=== PATIENT | female | born 2000 | race Caucasian/White ===

== ENCOUNTER 2019-07-11 12:24 | Inpatient (IN) | payer OTHER, MEDICAID, SELFPAY ==
[2019-07-11] VITALS (83 sets, daily range): BP systolic 88–162; BP diastolic 45–99; PULSE 83–144; TEMP 36.8–37.5; O2SAT 98–100
--- NOTE | 2019-07-11 13:00 | LDADM ---
This patient, Digna Nathan, was admitted to Labor/Delivery/Recovery 103 on 07/11/19 at 12:24. Plans for labor, pain management and were discussed with patient. Patient/family oriented to hospital policies and general routines including ID bracelet, bed and alarms, visiting hours, pain management, procedures, bathroom and other care routines, personal items, smoking policy, room service/diet and guest tray routines, security routines, call light, and visiting hours. Patient/Family are encouraged to report perceived risks to care and to ask questions if they do not understand what they are told or what they should do. See OBIX for further documentation.
[2019-07-11 13:32] LABS: Basophils Percent Auto 0.2 % (0.2-1.2); Eosinophils Absolute Auto 0.1 K/mm3 (0-0.3); Eosinophils Percent Auto 0.4 % (0-4.4); Hemoglobin 11.4 g/dL (12.0-15.0); Immature Granulocyte Absolute 0.06 K/mm3 (0.00-0.031); Immature Granulocyte Percent A 0.5 % (0-0.5); Lymphocytes Absolute Auto 1.83 K/mm3 (0.9-3.2); Lymphocytes Percent Auto 15.9 % (18.3-44.2); Mean Corpuscular HGB Conc 33.5 g/dl (32-36); Mean Corpuscular Hemoglobin 29.2 pg (26-34); Mean Corpuscular Volume 87.2 fl (80-100); Mean Platelet Volume 9.8 fl (7.4-10.4); Monocytes Absolute Auto 0.7 K/mm3 (0.1-0.6); Monocytes Percent Auto 6.4 % (2.6-8.5); Neutrophils Absolute Auto 8.8 K/mm3 (1.3-6.7); Neutrophils Percent Auto 76.6 % (45.5-73.1); Platelet Count Result 250 k/mm3 (150-375); Red Cell Distribution Width 13.8 % (11.5-14.5); White Blood Count 11.5 K/mm3 (4.5-10.0)
--- NOTE | 2019-07-11 13:46 | LDADM ---
This patient, Digna Nathan, was admitted to Labor/Delivery/Recovery 103 on 07/11/19 at 12:24. Plans for labor, pain management and were discussed with patient. Patient/S.O. oriented to hospital policies and general routines including ID bracelet, bed and alarms, visiting hours, pain management, procedures, bathroom and other care routines, personal items, smoking policy, room service/diet and guest tray routines, security routines, call light, and visiting hours. Patient/S. O. are encouraged to report perceived risks to care and to ask questions if they do not understand what they are told or what they should do. See OBIX for further documentation.
[2019-07-11] MEDS: OXYTOCIN 30 UNITS/NS 500 ML 30 UNITS/500 ML BAG IV CONT (14:51)
[2019-07-11] MEDS: LACTATED RINGERS 1,000 ML 125 ML IV CONT ×2 (14:51→22:05)
[2019-07-11 15:19] LABS: Alanine Aminotransferase 18 U/L (4-35); Albumin Level 3.2 g/dL (3.5-5.1); Alkaline Phosphatase 173 U/L (38-126); Aspartate Amino Transferase 28 U/L (14-36); Bilirubin,Total < 0.1 mg/dL (0.2-1.3); Blood Urea Nitrogen 10 mg/dL (7-17); Calcium 8.4 mg/dL (8.4-10.2); Carbon Dioxide 20 mmol/L (22-30); Chloride 107 mmol/L (98-107); Estimated Glomerular Filt Rate > 60; Glucose 108 mg/dL (65-105); Potassium 3.7 mmol/L (3.4-5.0); Sodium 131 mmol/L (137-145); Uric Acid 4.9 mg/dL (2.5-7.5)
--- NOTE | 2019-07-11 19:19 | WPDANESEPP ---
Anes - Eval Pre Procedure Procedure: labor epidural Date/Time: 07/11/19 19:19 Surgeon: David Preop Diagnosis: Pain during labor Pre Op Diagnosis: SROM Patient Data Age: 18 Gender: F Height: Weight: Last Vital Signs Temp 37.1 C 07/11/19 15:00 Pulse 92 07/11/19 19:18 BP 125/73 07/11/19 19:18 Pulse Ox 100 07/11/19 19:14 Allergies Allergy/AdvReac Type Severity Reaction Status Date / Time No Known Allergies Allergy Verified 07/03/19 14:31 Home Medications Medication Instructions Recorded Confirmed Type PNV no.[id number] 1 tablet PO BID 07/03/19 07/03/19 History [ Gummies] famotidine [Pepcid] 20 mg PO BID 07/03/19 07/03/19 History Laboratory Tests 07/11/19 07/11/19 07/11/19 13:24 13:24 13:24 WBC 11.5 K/mm3 H K/mm3 (4.5-10.0) RBC 3.90 M/mm3 L M/mm3 (4.2-5.4) Hgb 11.4 g/dL L g/dL (12.0-15.0) Hct 34.0 % L % (37.0-47.0) MCV 87.2 fl fl (80-100) MCH 29.2 pg pg (26-34) MCHC 33.5 g/dl g/dl (32-36) RDW 13.8 % % (11.5-14.5) Plt Count 250 k/mm3 k/mm3 (150-375) MPV 9.8 fl fl (7.4-10.4) Immature Gran % (Auto) 0.5 % % (0-0.5) Neut % (Auto) 76.6 % H % (45.5-73.1) Lymph % (Auto) 15.9 % L % (18.3-44.2) [place] % (Auto) 6.4 % % (2.6-8.5) Eos % (Auto) 0.4 % % (0-4.4) Baso % (Auto) 0.2 % % (0.2-1.2) Lymph # (Auto) 1.83 K/mm3 K/mm3 (0.9-3.2) [place] # (Auto) 0.7 K/mm3 H K/mm3 (0.1-0.6) Eos # (Auto) 0.1 K/mm3 K/mm3 (0-0.3) Baso # (Auto) 0.0 K/mm3 K/mm3 (0.0-0.1) Abs Immat Gran (auto) 0.06 K/mm3 H K/mm3 (0.00-0.031) Absolute Neuts (auto) 8.8 K/mm3 H K/mm3 (1.3-6.7) Absolute Nucleated RBC 0.0 K/mm3 K/mm3 (0.0-0.012) Nucleated RBC % 0.0 % % (0.0-0.2) Sodium Potassium Chloride Carbon Dioxide BUN Creatinine Estim Creat Clear Calc Estimated GFR Glucose Uric Acid Calcium Total Bilirubin AST ALT Alkaline Phosphatase Total Protein Albumin RPR Pending Blood Type B Positive Antibody Screen Negative 07/11/19 14:53 WBC RBC Hgb Hct MCV MCH MCHC RDW Plt Count MPV Immature Gran % (Auto) Neut % (Auto) Lymph % (Auto) [place] % (Auto) Eos % (Auto) Baso % (Auto) Lymph # (Auto) [place] # (Auto) Eos # (Auto) Baso # (Auto) Abs Immat Gran (auto) Absolute Neuts (auto) Absolute Nucleated RBC Nucleated RBC % Sodium 131 mmol/L L mmol/L (137-145) Potassium 3.7 mmol/L mmol/L (3.4-5.0) Chloride 107 mmol/L mmol/L (98-107) Carbon Dioxide 20 mmol/L L mmol/L (22-30) BUN 10 mg/dL mg/dL (7-17) Creatinine 0.50 mg/dL L mg/dL (0.7-1.0) Estim Creat Clear Calc Not Reportable Estimated GFR > 60 (59 - ) Glucose 108 mg/dL H mg/dL (65-105) Uric Acid 4.9 mg/dL mg/dL (2.5-7.5) Calcium 8.4 mg/dL mg/dL (8.4-10.2) Total Bilirubin < 0.1 mg/dL L mg/dL (0.2-1.3) AST 28 U/L U/L (14-36) ALT 18 U/L U/L (4-35) Alkaline Phosphatase 173 U/L H U/L (38-126) Total Protein 6.0 g/dL L g/dL (6.3-8.2) Albumin 3.2 g/dL L g/dL (3.5-5.1) RPR Blood Type Antibody Screen Patient hx anesthesia problems: none Family hx anesthesia problems: [facility] Family History Family History (Updated 07/03/19 @ 14:34 by Hawk Herbert RN) Other Unknown family medical history Social History Social History Smoking status: Never smoker Substance use: never
[2019-07-12] VITALS (11 sets, daily range): BP systolic 106–141; BP diastolic 68–87; PULSE 93–127; RESP 16–18; TEMP 36.8–37.4; O2SAT 92–100
--- NOTE | 2019-07-12 00:13 | WPDOBADMIT ---
Obstetrics - Admit Note Admission Note: 18 y/o G1 @ 38w4d who came in with leaking fluid and rom was confirmed. Initially pt thought she might have started leaking last night but on arrival to hospital she was confident she had only been leaking fluid since 0900 and thinks she lost her mucous plug last night. record reviewed. No pertinent additions to the history and/or any subsequent changes in the physical findings that are not consistent with the expected course of the were found. Additions to the history and/or subsequent changes in the physical findings follow. None.
--- NOTE | 2019-07-12 00:16 | P.PCNOB_ITS ---
OB - Delivery Note Procedure Delivery date: 07/12/19 Procedure: Forebag ruptured spontaneously at 1841 events: Labor Augmentation Intrapartal events: None Delivery monitor: external FHT and external uterine Route of delivery: Laceration description: Perineal - 2nd Degree Delivery repair: vicryl Estimated blood loss (mL): 142 Anesthesia type: Epidural [place] Baby Date of : 07/12/19 Time of : 23:03 Weeks of gestation at delivery: 38 gender: Female presentation: vertex position: Left Occiput Anterior Placenta delivery description: Spontaneous cord vessel description: 3 Vessels, Nuchal Cord, Around Body x1 and Around Body x2 score one minute: 8 score five minutes: 8 Narrative: Nuchal cord x 1 reduced and at delivery noted to be wrapped around the body and left arm. At delivery had very poor tone and resp effort. Cord clamped and handed off to nursery staff.
[2019-07-12] MEDS: IBUPROFEN 600 MG TABLET PO ×3 (00:47→20:02)
[2019-07-12] MEDS: WITCH HAZEL 40 PADS 1 PAD TOPICAL (01:42)
[2019-07-12] MEDS: BENZOCAINE 20% AER SPR (*SP) 56 GM CAN 1 SPRAY TOPICAL (01:42)
--- NOTE | 2019-07-12 05:16 | PC.NURSE ---
This patient, Digna Nathan, was received from Labor and delivery on 07/12/19 at 0200. Personal belongings list checked and signed. Patient/family oriented to unit policies and routines
--- NOTE | 2019-07-12 07:48 | P.PNOB_ITS ---
OB - PN: Subj Subjective Date/time seen: 07/12/19 07:48 Patient comments: no complaints baby status: doing well OB - PN: Obj Data Labs CBC & Chem 7: 07/11/19 13:24 07/11/19 14:53 Labs: Laboratory Results - last 24 hr 07/11/19 07/11/19 07/11/19 13:24 13:24 14:53 WBC 11.5 H RBC 3.90 L Hgb 11.4 L Hct 34.0 L MCV 87.2 MCH 29.2 MCHC 33.5 RDW 13.8 Plt Count 250 MPV 9.8 Immature Gran % (Auto) 0.5 Neut % (Auto) 76.6 H Lymph % (Auto) 15.9 L [place] % (Auto) 6.4 Eos % (Auto) 0.4 Baso % (Auto) 0.2 Lymph # (Auto) 1.83 [place] # (Auto) 0.7 H Eos # (Auto) 0.1 Baso # (Auto) 0.0 Abs Immat Gran (auto) 0.06 H Absolute Neuts (auto) 8.8 H Absolute Nucleated RBC 0.0 Nucleated RBC % 0.0 Sodium 131 L Potassium 3.7 Chloride 107 Carbon Dioxide 20 L BUN 10 Creatinine 0.50 L Estim Creat Clear Calc Not Reportable Estimated GFR > 60 Glucose 108 H Uric Acid 4.9 Calcium 8.4 Total Bilirubin < 0.1 L AST 28 ALT 18 Alkaline Phosphatase 173 H Total Protein 6.0 L Albumin 3.2 L Blood Type B Positive Antibody Screen Negative OB - PN A/P Plan day: 1 Plan: routine care Time Spent With Patient Time: Total time spent is greater than 50% in coordination of care (as radha price) at patient's floor/unit and/or counseling patient: Review of Systems Review of Systems: All systems reviewed & are unremarkable except as noted in HPI and below Constitutional: Constitutional: Reports as per HPI Cardiovascular: Cardiovascular: Reports as per HPI Exam Const: General: comfortable Cardio: Rate: regular rate Psych: Appearance: grossly normal Affect: normal affect Attitude: cooperative Judgement: Good judgement present (Psych)
[2019-07-12 08:42] LABS: Rapid Plasma Reagin Non-Reactive (NonReactive)
--- NOTE | 2019-07-12 09:30 | PC.NURSE ---
Mother called out for assist with feeding. Mother reports infant has been in level II, she began pumping. This is 's first time to breast. l Reviewed infant feeding cues, frequencies, duration of feedings, feeding elimination flow sheet, and signs of adequate intake. Demonstrated stimulation techniques to wake infant for feeding. easily awoken with feeding cues noted. Assisted with infant to breast. Reviewed positioning/alignment in cross cradle, holding breast in U hold and guided asymmetrical latch on. Discussed rational for each. Infant was able to latch correctly. Infant made minimal effort to suckle, keeping nipple in her mouth. Occasional short flutter suckling noted. Advised to keep breast for 10-15 minutes then supplement and pump. Nipple care reviewed. Instructed mother to call out for RN assistance if she is unable to latch for feeding or she has discomfort with nursing. Instructed feeding should be initiated three hours from start of last feeding or if feeding cues are noted before. Mother voiced understanding of information shared.
[2019-07-12] MEDS: MULTIVIT/MIN/PREN/FOL AC/IRON TABLET 1 TAB PO (09:57)
[2019-07-12] MEDS: DOCUSATE SODIUM 100 MG CAPSULE PO (09:57)
--- NOTE | 2019-07-12 12:45 | PC.NURSE ---
Mother called out for assist with feeding. Demonstrated stimulation techniques to wake for feeding. easily awoken with feeding cues noted. Infant more awake with some feeding cues noted. Assisted with to breast. Reviewed positioning/alignment in cross cradle, holding breast in U hold and guided asymmetrical latch on. Discussed rational for each. Infant was able to latch correctly. Infant nursed eagerly with steady draws and occasional swallowing noted for 2-3 minutes. then stopped and fell asleep, infant made no continued effort to suckle. Reviewed signs of a correct latch, effective nursing and suck swallow ratio. was able to maintain latch without discomfort to mother. Nipple care reviewed. FOB will supplement and mother will pump. Instructions given on breast pump care and usage, pumping schedule, nipple care, and collection and storage of breast milk. Encouraged [id number], breast massage and manual expression to stimulate supply. Assessed patient for correct flange size, placement and draw. Patient verbalizes and demonstrates understanding of instructions. Instructed mother to call out for RN assistance if she is unable to latch for feeding or she has discomfort with nursing. Instructed feeding should be initiated three hours from start of last feeding or if feeding cues are noted before. Mother voiced understanding of information shared.
[2019-07-12] MEDS: ACETAMINOPHEN 325 MG TABLET 650 MG PO (20:03)
[2019-07-13 04:39] LABS: Hematocrit 28.8 % (37.0-47.0); Hemoglobin 9.5 g/dL (12.0-15.0)
[2019-07-13] MEDS: IBUPROFEN 600 MG TABLET PO (07:55)
[2019-07-13] MEDS: DOCUSATE SODIUM 100 MG CAPSULE PO ×2 (07:55→15:31)
[2019-07-13] MEDS: MULTIVIT/MIN/PREN/FOL AC/IRON TABLET 1 TAB PO (07:55)
[2019-07-13] MEDS: POLYSACCHARIDE IRON COMPLEX 150 MG CAPSULE PO ×2 (07:55→15:31)
[2019-07-13] MEDS: ACETAMINOPHEN 325 MG TABLET 650 MG PO (07:56)
[2019-07-13 08:43] VITALS: BP 135/93; PULSE 85; RESP 16; TEMP 36.7; O2SAT 98
[2019-07-13] MEDS: TETANUS,DIPHTHERIA,AC PERTUSSIS ADULT (0.5 ML) BOOSTRIX IM (09:18)
--- NOTE | 2019-07-13 11:30 | PC.NURSE ---
Patient viewed the discharge video Mother & Baby Care, The First Two Weeks . Patient was given the opportunity and encouraged to ask questions. Patient verbalized understanding of information shared and has been given the mother/baby guide for home reference.
--- NOTE | 2019-07-13 12:00 | PM.OBPNVD ---
OB - PN: Subj Subjective Date/time seen: 07/13/19 12:00 Patient comments: no complaints, pain well controlled and tolerating diet OB - PN: Obj Data Labs CBC & Chem 7: 07/13/19 04:15 07/11/19 14:53 Labs: Laboratory Results - last 24 hr 07/13/19 04:15 Hgb 9.5 L Hct 28.8 L OB - PN A/P Plan day: 2 Plan: routine care and discharge home Time Spent With Patient Time: Total time spent is greater than 50% in coordination of care (as documented) at patient's floor/unit and/or counseling patient: Exam Const: General: comfortable and no acute distress Resp: Effort & Inspection: normal respiratory effort Auscultation: no rales, no rhonchi and no wheezes Cardio: Rate: regular rate Heart sounds: no click, no murmurs and no rubs GI: GI Palp: Yes Soft to palpation and No Tenderness to palpation present (GI) Auscultation: normal bowel sounds Extrem: General: normal to inspection, no pedal edema and no calf tenderness
--- NOTE | 2019-07-13 12:01 | PM.OBDSVD ---
DS: Discharge Diagnosis Discharge Diagnosis (1) Term delivered: Code(s): O80 - Encounter for full-term uncomplicated delivery Status: Acute OB - DS: Summary OB Procedures : None OB Procedures Intrapartum: Spontaneous Vag Delivery OB Procedures: : None Peripartum Data Delivery Method: Natural Vaginal Status at Discharge Functional status at discharge: independent ambulation Time Spent with Patient Time attestation: Total time spent providing and/or coordinating discharge services: Time spent: Less than 30 minutes DS: Data Data Completed and Pending Labs on day of discharge: Labs from last 24 hours 07/13/19 04:15 Hgb 9.5 L Hct 28.8 L Discharge Plan Discharge Discharging Clinician: Marquez Hernandez Patient Disposition: Home Health Service Activity: pelvic rest Diet: regular Patient Instructions: Antibiotic Form Stand Alone Forms: General Discharge Information Follow-up/Referrals: Marquez Hernandez MD [Physician] - Discharge Medications: Continued famotidine [Pepcid] 20 mg Tablet 20 mg PO BID RF: 0 Gummies 400 mcg-35 mg- 25 mg-5 mg Tablet,Chewable 1 tablet PO BID RF: 0 Date of admission: 07/11/19 12:24 Primary Care Provider: PHYSICIAN,INTERNAL CONTROLS MANAGER Admitting Provider: Marquez Hernandez Attending physician on admission: Marquez Hernandez
[2019-07-15 09:48] VITALS: BP 126/85; PULSE 88; RESP 20; TEMP 36.8; O2SAT 100
== END 2019-07-13 18:30 | disposition home or self-care (01) | DRG 807 ==
LOC: ANHLDR 15:01 → ANHOB2 07-12 02:10
PROVIDERS: Advanced Practice Midwife; Admitting Provider Obstetrics & Gynecology; Visit Provider Obstetrics & Gynecology
DX: O69.82X0 Labor and delivery complicated by other cord entanglement, without compression, not applicable or unspecified (principal); Z37.0 Single live birth; Z3A.38 38 weeks gestation of pregnancy; O70.1 Second degree perineal laceration during delivery
CPT/HCPCS: 36415; 80053; 84112; 84550; 85014; 85018; 85025; 86592; 86850; 86900; 86901; 90715; A9270; J2590; J2795; J3010; J7120

== ENCOUNTER → 2020-10-09 07:44 | Outpatient (CLI) | payer OTHER, SELFPAY ==
--- NOTE | ~2020-10-09 | US_ITS ---
US breast LT complete INDICATION: Left breast lump. TECHNIQUE: Dedicated left breast ultrasound COMPARISON: No prior studies for comparison. FINDINGS: The left breast is composed of normal heterogeneous echotexture without focal solid or cyst ic mass. IMPRESSION: 1: Normal left breast ultrasound. BI-RADS CATEGORY 1 - NEGATIVE Reviewed, dictated and finalized at location A.
== END ==
PROVIDERS: Visit Provider Advanced Practice Midwife
DX: N63.20 Unspecified lump in the left breast, unspecified quadrant (principal)
CPT/HCPCS: 76641

== ENCOUNTER 2021-02-02 16:05 | Outpatient (CLI) | payer OTHER, SELFPAY ==
[2021-02-02] VITALS (21 sets, daily range): BP systolic 91–108; BP diastolic 51–70; PULSE 89–121; TEMP 37–37.4; O2SAT 97–100
--- NOTE | 2021-02-02 17:24 | ECG_ITS ---
Measurements Intervals [place] Rate: 91 P: 24 [place]: 108 QRS: 20 QRSD: 90 T: 18 QT: 347 QTc: 427 Interpretive Statements SINUS RHYTHM WITH SHORT [place] INTERVAL INCOMPLETE RIGHT BUNDLE BRANCH BLOCK DELAYED PRECORDIAL R/S TRANSITION BORDERLINE ECG Electronically Signed On 02-02-2021 21:53:43 RAISIN WASHER by Arie Moon D.O.
--- NOTE | 2021-02-02 18:09 | PC.NURSE ---
Dr. Ng informed of EKG printout reading. OK to discharge to home. Pt to be seen in office within the week. Pt will call office and reschedule appointment.
== END 2021-02-02 18:15 | disposition home or self-care (01) ==
LOC: ANHOBOP 16:15 → ANHOBPP 16:16
PROVIDERS: Visit Provider Advanced Practice Midwife
DX: O42.90 Premature rupture of membranes, unspecified as to length of time between rupture and onset of labor, unspecified weeks of gestation (principal); Z3A.00 Weeks of gestation of pregnancy not specified
CPT/HCPCS: 59025; 84112; 93005; 99199

== ENCOUNTER 2021-04-01 12:01 | Observation (INO) | payer OTHER, SELFPAY ==
[2021-04-01 12:46] VITALS: BMI 34.3
--- NOTE | 2021-04-01 12:46 | OBADM ---
This patient, Digna Nathan, admitted to the OB room OB 112 for observation for back pain and leakage of fluid. Patient/family oriented to hospital policies and general routines including ID bracelet, bed and alarms, visiting hours, pain management, procedures, bathroom and other care routines, personal items, smoking policy, room service/diet, and visiting hours. Patient/Family are encouraged to report perceived risks to care and to ask questions if they do not understand what they are told or what they should do.
[2021-04-01 12:53] LABS: Add Urine Microscopic? YES; Appearance Urine Clear (Clear); Bacteria Urine Trace /hpf; Bilirubin Urine Negative (Negative); Blood Urine Negative (Negative); Color Urine Yellow (Yellow); Glucose Urine UA Negative (Negative); Ketones Urine 2+ mg/dL (Negative); Leukocyte Esterase Ur Negative LEU/UL (Negative); Mucus Urine Rare /lpf; Nitrate Urine Negative (Negative); Protein Urine 2+ mg/dL (Negative); RBC Urine 0-2 /hpf (0-2); Specific Grav Ur 1.019 (1.001-1.035); Squamous Epithelial Cell Urine Many /hpf (Few); Urobilinogen Urine Negative mg/dL (<2.0)
[2021-04-01 13:04] VITALS: BP 112/79; PULSE 110
[2021-04-01 13:05] VITALS: TEMP 37.4
[2021-04-01 14:11] VITALS: BP 119/80; PULSE 103
--- NOTE | 2021-04-25 21:09 | P.PNOB_ITS ---
OB - Triage/Final Diagnosis Visit Information Comments/Additional reasons for admission: I have assessed the risk for this patient, Digna Nathan, and determined that she would benefit from observation care. Evaluation Laboratory results: Laboratory Tests 04/01/21 12:32 Urine Color Yellow Urine Appearance Clear Urine pH 6.0 Ur Specific [place] 1.019 Urine Protein 2+ H Urine Glucose (UA) Negative Urine Ketones 2+ H Ur Blood (Man) Negative Urine Nitrate Negative Urine Bilirubin Negative Urine Urobilinogen Negative Leukocyte Esterase Rfl Negative Urine RBC 0-2 Urine WBC 4-6 H Ur Squamous Epith Cells Many H Urine Bacteria Trace Urine Mucus Rare Final Diagnosis (1) Back pain: Code(s): M54.9 - Dorsalgia, unspecified Status: Acute
== END 2021-04-01 14:18 | disposition home or self-care (01) ==
PROVIDERS: Admitting Provider Obstetrics & Gynecology; Visit Provider Obstetrics & Gynecology
DX: O99.891 Other specified diseases and conditions complicating pregnancy (principal); M54.9 Dorsalgia, unspecified; Z3A.36 36 weeks gestation of pregnancy
CPT/HCPCS: 81001; 84112; G0378; G0379

== ENCOUNTER 2021-04-19 06:51 | Inpatient (IN) | payer OTHER, SELFPAY ==
[2021-04-19] VITALS (159 sets, daily range): BP systolic 80–154; BP diastolic 40–88; PULSE 25–125; RESP 16; TEMP 36.5–37.3; O2SAT 91–100; BMI 34.3
--- OUTSIDE RECORDS SUMMARY | 2021-04-19 06:56 | XMS_ITS ---
:2000 Author Care Team Providers Name Role Phone Brionna Hernandez Primary Care Provider Unavailable Allergies Code Code System Name Reaction Severity Status Onset NKDA ? Medications Name Status Start Date Stop Date ? ? Aspir-81 mg tablet,delayed release Completed ? 09/07/2020 take 1 tablet by oral route every day Asprin Ec Low Dose 81 mg tablet,delayed release Completed ? 06/12/2019 Take 1 tablet every day by oral route. cephalexin 500 mg capsule Completed ? 2020 TAKE 1 CAPSULE EVERY 6 HOURS BY ORAL ROUTE FOR 7 DAYS. cyclobenzaprine 10 mg tablet Completed ? 03/2020 TAKE 1 TABLET BY MOUTH THREE TIMES A DAY NEEDED FOR MUSCLE S PASMS escitalopram 10 mg tablet Completed ? 2020 TAKE 1 TABLET BY MOUTH EVERY DAY escitalopram 20 mg tablet Completed ? 2020 TAKE 1 TABLET BY MOUTH EVERY DAY ibuprofen 600 mg tablet Completed ? 09/08/19 21 TAKE 1 TABLET BY MOUTH EVERY 6 HOURS NEEDED FOR PAIN Junel 02/25 (28) 1 mg-20 mcg (21)/75 mg (7) tablet Completed ? 12/27/2019 TAKE 1 TABLET BY MOUTH EVERY DAY metronidazole 500 mg tablet Completed ? 01/07 Take 1 tablet twice a day by oral route for 7 days. ondansetron HCl 4 mg tablet Active ? Not available pepsin (bulk) Completed ? 08/28/2019 + DHA Completed ? 08/28/2019 28 mg-800 mcg tablet Active ? No t available Samples given progesterone micronized Completed ? 06/10/19 proges
--- OUTSIDE RECORDS SUMMARY | 2021-04-19 06:56 | XMS_ITS | Encounter Summary ---
:2000 Author Reason for Visit OB visit OB [id number] EDC 04/24/2020 LMP 07/11/2020 Assessment and Plan Assessment Note Patient is _27__weeks . Dis cussed plan. 1. Routine care Discussion Note: None recorded.Patient educational handouts: No information available. Plan of Care Reminders Provider Appointments None ? ? recorded. Lab None ? ? recorded. Referral None ? ? recorded. Procedures None ? ? recorded. Surgeries None ? ? recorded. Imaging None ? ? recorded. Medications Name Start Date ? ? ondansetron HCl 4 mg tablet ? Take 1 tablet every 6 hours by oral route. 28 mg-800 mcg tablet ? Samples given Medications Administered None recorded. Vitals Height Weight BMI Blood Pressure 5 ft 3 in 185 lbs 32.8 kg/m2 124/78 mm[Hg] Results Lab Results None recorded. Allergies Code Code System Name Reaction Severity Onset NKDA ? ? ? Problems Name Status Onset Date Source ? Active 10/15/2020 ? Notes: 12/16 Level II & Dr visit if needed Proced
--- OUTSIDE RECORDS SUMMARY | 2021-04-19 06:56 | XMS_ITS | Encounter Summary ---
:2000 Author Reason for Visit OB visit OB [id number] EDC 04/24/2021 LMP 07/11/2020 Assessment and Plan Assessment Note Patient is _37__weeks . Dis cussed plan. 1. Routine care [...] BMI Blood Pressure 5 ft 3 in 194 lbs 34.4 kg/m2 124/86 mm[Hg] Results Lab Results None recorded. Allergies Code Code System Name Reaction Severity Onset NKDA ? ? ? Problems Name Status Onset Date Source ? Active 10/15/2020 ? Notes: 12/16 Level II & Dr visit if needed Procedur
--- OUTSIDE RECORDS SUMMARY | 2021-04-19 06:56 | XMS_ITS | Encounter Summary ---
:2000 Author Reason for Visit OB visit OB [id number] EDC 04/24/2021 LMP 07/11/2020 Assessment and Plan Assessment Note Patient is _38__weeks . Dis cussed plan. 1. Routine care [...] ft 3 in 194 lbs 34.4 kg/m2 119/81 mm[Hg] Results Lab Results None recorded. Allergies Code Code System Name Reaction Severity Onset NKDA ? ? ? Problems Name Status Onset Date Source ? Active 10/15/2020 ? Notes: 12/16 Level II & Dr visit if needed Procedu
--- OUTSIDE RECORDS SUMMARY | 2021-04-19 06:56 | XMS_ITS | Encounter Summary ---
:2000 Author Reason for Visit OB visit OB [id number] EDC 04/24/2021 LMP 07/11/2020 Assessment and Plan Assessment Note Patient is _29__weeks . Dis cussed plan. 1. Routine care [...] BMI Blood Pressure 5 ft 3 in 190 lbs 33.7 kg/m2 104/74 mm[Hg] Results Lab Results None recorded. Allergies Code Code System Name Reaction Severity Onset NKDA ? ? ? Problems Name Status Onset Date Source ? Active 10/15/2020 ? Notes: 12/16 Level II & Dr visit if needed Proced
--- OUTSIDE RECORDS SUMMARY | 2021-04-19 06:56 | XMS_ITS | Encounter Summary ---
:2000 Author Reason for Visit None recorded. Assessment and Plan 1. Large for gestation age fetus ? US, obstetric, follow-up Discussion Note: None recorded.Patient educational handouts: No information available. Plan of Care Reminders Provider Appointments None ? ? recorded. Lab None ? ? recorded. Referral None ? ? recorded. Procedures None ? ? recorded. Surgeries None ? ? recorded. Imaging US, 04/07/2021 [place] [facility], Follow-up Medications Name Start Date ? ? ondansetron HCl 4 mg tablet ? Take 1 tablet every 6 hours by oral route. 28 mg-800 mcg tablet ? Samples given Medications Administered None recorded. Vitals None recorded. Results Lab Results None recorded. Allergies Code Code System Name Reaction Severity Onset NKDA ? ? ? Problems Name Status Onset Date Source ? Active 10/15/2020 ? Notes: 12/16 Level II & Dr visit if needed Procedures Date Name Performed by ? 02/07/2008 Wrist Arthroscopy/surgery Information no t a
--- OUTSIDE RECORDS SUMMARY | 2021-04-19 06:56 | XMS_ITS | Encounter Summary ---
:2000 Author Reason for Visit OB visit Pt is here today for her 34/2 week routi ne ob visit. no complaints. Assessment and Plan Assessment Note Patient is ___weeks . Discu ssed plan. 1. Routine care Discussion Note: None [...] ft 3 in 194 lbs 34.4 kg/m2 122/79 mm[Hg] Results Lab Results None recorded. Allergies Code Code System Name Reaction Severity Onset NKDA ? ? ? Problems Name Status Onset Date Source ? Active 10/15/2020 ? Notes: 12/16 Level II & Dr visit
--- OUTSIDE RECORDS SUMMARY | 2021-04-19 06:56 | XMS_ITS | Encounter Summary ---
:2000 Author Reason for Visit OB visit OB [id number] EDC 04/24/2021 LMP 07/11/2020 Assessment and Plan Assessment Note Patient is _36__weeks . Dis cussed plan. 1. Routine care [...] BMI Blood Pressure 5 ft 3 in 196 lbs 34.7 kg/m2 118/83 mm[Hg] Results Lab Results None recorded. Allergies Code Code System Name Reaction Severity Onset NKDA ? ? ? Problems Name Status Onset Date Source ? Active 10/15/2020 ? Notes: 12/16 Level II & Dr visit if needed Proced
--- OUTSIDE RECORDS SUMMARY | 2021-04-19 06:56 | XMS_ITS | Encounter Summary ---
:2000 Author Reason for Visit None recorded. Assessment and Plan 1. Spotting per vagina in pregna ncy ? US, obstetric, limited Discussion Note: None recorded.Patient educational handouts: No information available. Plan of Care Reminders Provider Appointments None ? ? recorded. Lab None ? ? recorded. Referral None ? ? recorded. Procedures None ? ? recorded. Surgeries None ? ? recorded. Imaging US, [place] [facility], Limited 03/03/2021 Medications Name Start Date ? ? ondansetron [...]
[2021-04-19 07:29] LABS: Basophils Percent Auto 0.5 % (0.2-1.2); Eosinophils Absolute Auto 0.1 K/mm3 (0-0.3); Eosinophils Percent Auto 1.4 % (0-4.4); Hemoglobin 11.1 g/dL (12.0-15.0); Immature Granulocyte Absolute 0.04 K/mm3 (0.00-0.031); Immature Granulocyte Percent A 0.5 % (0-0.5); Lymphocytes Absolute Auto 2.31 K/mm3 (0.9-3.2); Mean Corpuscular HGB Conc 34.7 g/dl (32-36); Mean Corpuscular Hemoglobin 29.9 pg (26-34); Mean Corpuscular Volume 86.3 fl (80-100); Mean Platelet Volume 9.1 fl (7.4-10.4); Monocytes Absolute Auto 0.7 K/mm3 (0.1-0.6); Monocytes Percent Auto 8.1 % (2.6-8.5); Neutrophils Absolute Auto 5.4 K/mm3 (1.3-6.7); Neutrophils Percent Auto 62.5 % (45.5-73.1); Platelet Count Result 240 k/mm3 (150-375); Red Blood Count 3.71 M/mm3 (4.2-5.4); Red Cell Distribution Width 14.1 % (11.5-14.5); White Blood Count 8.6 K/mm3 (4.5-10.0)
[2021-04-19] MEDS: OXYTOCIN 30 UNITS/NS 500 ML 30 UNITS/500 ML BAG IV CONT (07:42)
[2021-04-19] MEDS: LACTATED RINGERS 1,000 ML 125 ML IV CONT ×3 (07:42→18:42)
[2021-04-19 07:49] LABS: Amphetamine Screen Urine Negative (Negative); Barbiturate Screen Urine Negative (Negative); Benzodiazepines Screen Urine Negative (Negative); Cannabinoid Screen Urine Positive (Negative); Opiate Screen Urine Negative (Negative); Phencyclidine Screen Urine Negative (Negative)
--- NOTE | 2021-04-19 07:58 | LDADM ---
This patient, Digna Nathan, was admitted to Labor/Delivery/Recovery 105 on 04/19/21 at 06:51. Plans for labor, pain management and were discussed with patient. Patient/family oriented to hospital policies and general routines including ID bracelet, bed and alarms, visiting hours, pain management, procedures, bathroom and other care routines, personal items, smoking policy, room service/diet and guest tray routines, security routines, and visiting hours. Patient/Family are encouraged to report perceived risks to care and to ask questions if they do not understand what they are told or what they should do. See OBIX for further documentation.
[2021-04-19 08:01] LABS: Cocaine Screen Urine Negative (Negative); Methadone Screen Urine Negative (Negative)
--- NOTE | 2021-04-19 09:06 | WPDOBADMIT ---
Obstetrics - Admit Note Admission Note: record reviewed. No pertinent additions to the history and/or any subsequent changes in the physical findings that are not consistent with the expected course of the were found. IOL /-2 AROm large amount of clear odorless fluid Additions to the history and/or subsequent changes in the physical findings follow. None.
--- NOTE | 2021-04-19 11:00 | WPDANESEPP ---
Anes - Eval Pre Procedure Procedure: labor epidural Date/Time: 04/19/21 11:00 Preop Diagnosis: labor pain Pre Op Diagnosis: Induction of Labor Patient Data Age: 20 Gender: F Height: 1.6 m Weight: 88 kg Last Vital Signs Temp 37.2 C 04/19/21 09:30 Pulse 96 04/19/21 10:31 BP 113/83 04/19/21 10:31 Allergies Allergy/AdvReac Type Severity Reaction Status Date / Time No Known Allergies Allergy Verified 07/03/19 14:31 Home Medications Medication Instructions Recorded Confirmed Type famotidine [Pepcid] 20 mg PO BID 07/03/19 04/19/21 History PNV cmb#95-ferrous fumarate-FA 1 tablet PO DAILY 02/02/21 04/19/21 History [] Slow Fe 142 mg PO DAILY 02/02/21 04/19/21 History Laboratory Tests 04/19/21 04/19/21 04/19/21 07:21 07:21 07:21 WBC 8.6 K/mm3 K/mm3 (4.5-10.0) RBC 3.71 M/mm3 L M/mm3 (4.2-5.4) Hgb 11.1 g/dL L g/dL (12.0-15.0) Hct 32.0 % L % (37.0-47.0) MCV 86.3 fl fl (80-100) MCH 29.9 pg pg (26-34) MCHC 34.7 g/dl g/dl (32-36) RDW 14.1 % % (11.5-14.5) Plt Count 240 k/mm3 k/mm3 (150-375) MPV 9.1 fl fl (7.4-10.4) Immature Gran % (Auto) 0.5 % % (0-0.5) Neut % (Auto) 62.5 % % (45.5-73.1) Lymph % (Auto) 27.0 % % (18.3-44.2) [place] % (Auto) 8.1 % % (2.6-8.5) Eos % (Auto) 1.4 % % (0-4.4) Baso % (Auto) 0.5 % % (0.2-1.2) Lymph # (Auto) 2.31 K/mm3 K/mm3 (0.9-3.2) [place] # (Auto) 0.7 K/mm3 H K/mm3 (0.1-0.6) Eos # (Auto) 0.1 K/mm3 K/mm3 (0-0.3) Baso # (Auto) 0.0 K/mm3 K/mm3 (0.0-0.1) Abs Immat Gran (auto) 0.04 K/mm3 H K/mm3 (0.00-0.031) Absolute Neuts (auto) 5.4 K/mm3 K/mm3 (1.3-6.7) Absolute Nucleated RBC 0.0 K/mm3 K/mm3 (0.0-0.012) Nucleated RBC % 0.0 % % (0.0-0.2) Urine Opiates Screen Negative (Negative) Urine Methadone Screen Negative (Negative) Ur Barbiturates Screen Negative (Negative) Ur Phencyclidine Scrn Negative (Negative) Ur Amphetamine Screen Negative (Negative) U Benzodiazepines Scrn Negative (Negative) Urine Cocaine Screen Negative (Negative) U Cannabinoids Screen Positive A (Negative) RPR Pending Blood Type Antibody Screen 04/19/21 07:21 WBC RBC Hgb Hct MCV MCH MCHC RDW Plt Count MPV Immature Gran % (Auto) Neut % (Auto) Lymph % (Auto) [place] % (Auto) Eos % (Auto) Baso % (Auto) Lymph # (Auto) [place] # (Auto) Eos # (Auto) Baso # (Auto) Abs Immat Gran (auto) Absolute Neuts (auto) Absolute Nucleated RBC Nucleated RBC % Urine Opiates Screen Urine Methadone Screen Ur Barbiturates Screen Ur Phencyclidine Scrn Ur Amphetamine Screen U Benzodiazepines Scrn Urine Cocaine Screen U Cannabinoids Screen RPR Blood Type B Positive Antibody Screen Negative Patient hx anesthesia problems: none Family hx anesthesia problems: none Results Review: All pre-operative results and documents have been reviewed as part of the pre-operative evaluation. [facility] Family History Family History (Updated 07/03/19 @ 14:34 by Hawk Herbert RN) Other Unknown family medical history Social History Social History Smoking status: Never smoker Substance use: never Other substance usage details: here and there Spiritual care concerns: No Exam Day of Procedure 04/19/21 11:00
[2021-04-19] MEDS: ONDANSETRON INJ 4 MG/2 ML VIAL IV PUSH (16:52)
[2021-04-19] MEDS: FAMOTIDINE 20 MG/2 ML VIAL (18:42)
[2021-04-19] MEDS: OXYTOCIN 30 UNITS/NS 500 ML 30 UNITS/500 ML BAG 999 UNITS IV CONT (19:25)
--- NOTE | 2021-04-19 19:31 | PM.OBPRVD ---
OB - Delivery Note Procedure Delivery date: 04/19/21 Procedure: Vaginal delivery Events: Elective Induction of Labor Induction method: AROM and Per Pitocin Protocol Delivery augmentation: Rupture of Membranes Delivery monitor: External FHT and External Uterine Episiotomy description: Right Mediolateral (1st degree repair) Delivery repair: vicryl Quantitative Blood Loss (ml): 100 Anesthesia type: Epidural Disposition: Floor Baby Date of : 04/19/21 Time of : 19:09 Weeks of gestation at delivery: 39 gender: Male Weight (pounds): 8 Weight (ounces): 15 presentation: vertex position: Left Occiput Anterior Placenta delivery description: Spontaneous Cord Vessel Description: 3 Vessels and Clamped/Cut score one minute: 4 score five minutes: 8 Narrative: good maternal pushing effort and baby from OP to NICOLETTE then head delivered right arm unable to be delivered and fetus then to OT, pt in [place], unable to maneuver , episiotomy and then able to reach in and deliver anterior arm, rest of baby delivered w/o difficuty, baby moving all extremities
[2021-04-19] MEDS: OXYTOCIN 30 UNITS/NS 500 ML 30 UNITS/500 ML BAG 125 UNITS IV CONT (19:39)
--- NOTE | 2021-04-19 21:50 | OBPPTRN ---
Patient transferred to post room #287 via wheelchair. Support person present. Oriented to unit, room, information board, rooming in, admission packet and security measures. Patient verbalizes understanding. with patient.
[2021-04-19] MEDS: IBUPROFEN 600 MG TABLET PO (22:23)
[2021-04-20 04:12] VITALS: BP 106/72; PULSE 82; RESP 16; TEMP 36.5; O2SAT 100
[2021-04-20 04:13] VITALS: PULSE 82; RESP 16; O2SAT 100
[2021-04-20 04:34] LABS: Hematocrit 30.7 % (37.0-47.0); Hemoglobin 10.5 g/dL (12.0-15.0)
[2021-04-20] MEDS: IBUPROFEN 600 MG TABLET PO ×2 (05:57→15:58)
--- NOTE | 2021-04-20 06:46 | PM.OBPNVD ---
OB - PN: Subj Subjective Date/time seen: 04/20/21 06:46 Patient comments: no complaints and pain well controlled baby status: doing well and bottle feeding well OB - PN: Obj Data Labs CBC & Chem 7: 04/20/21 04:11 Labs: Laboratory Results - last 24 hr 04/19/21 04/19/21 04/19/21 07:21 07:21 07:21 WBC 8.6 RBC 3.71 L Hgb 11.1 L Hct 32.0 L MCV 86.3 MCH 29.9 MCHC 34.7 RDW 14.1 Plt Count 240 MPV 9.1 Immature Gran % (Auto) 0.5 Neut % (Auto) 62.5 Lymph % (Auto) 27.0 [place] % (Auto) 8.1 Eos % (Auto) 1.4 Baso % (Auto) 0.5 Lymph # (Auto) 2.31 [place] # (Auto) 0.7 H Eos # (Auto) 0.1 Baso # (Auto) 0.0 Abs Immat Gran (auto) 0.04 H Absolute Neuts (auto) 5.4 Absolute Nucleated RBC 0.0 Nucleated RBC % 0.0 Urine Opiates Screen Negative Urine Methadone Screen Negative Ur Barbiturates Screen Negative Ur Phencyclidine Scrn Negative Ur Amphetamine Screen Negative U Benzodiazepines Scrn Negative Urine Cocaine Screen Negative U Cannabinoids Screen Positive A Blood Type B Positive Antibody Screen Negative 04/20/21 04:11 WBC RBC Hgb 10.5 L Hct 30.7 L MCV MCH MCHC RDW Plt Count MPV Immature Gran % (Auto) Neut % (Auto) Lymph % (Auto) [place] % (Auto) Eos % (Auto) Baso % (Auto) Lymph # (Auto) [place] # (Auto) Eos # (Auto) Baso # (Auto) Abs Immat Gran (auto) Absolute Neuts (auto) Absolute Nucleated RBC Nucleated RBC % Urine Opiates Screen Urine Methadone Screen Ur Barbiturates Screen Ur Phencyclidine Scrn Ur Amphetamine Screen U Benzodiazepines Scrn Urine Cocaine Screen U Cannabinoids Screen Blood Type Antibody Screen OB - PN A/P Assessment and Plan (1) Term delivered: Code(s): O80 - Encounter for full-term uncomplicated delivery Status: Acute Plan day: 1 Plan: routine care Time Spent With Patient Time: Total time spent is greater than 50% in coordination of care (as documented) at patient's floor/unit and/or counseling patient: Time with patient: less than 15 minutes Exam Narrative: NAD abdomen soft, nontender, fundus firm below the umbilicus Extremities nontender, 1+ edema
[2021-04-20] MEDS: FERROUS SULFATE DRIED 142 MG TABCR PO (07:31)
[2021-04-20] MEDS: DOCUSATE SODIUM 100 MG CAPSULE PO ×2 (07:31→15:57)
[2021-04-20] MEDS: FAMOTIDINE 20 MG TABLET PO (07:32)
[2021-04-20 08:20] VITALS: BP 111/75; PULSE 81; RESP 16; TEMP 36.6; O2SAT 100
[2021-04-20 08:52] LABS: Rapid Plasma Reagin Non-Reactive (NonReactive)
--- NOTE | 2021-04-20 10:58 | WPDANLDPN2 ---
Anes-Prog Note L&D Date/Time: 04/20/21 10:58 Comfortable throughout: labor and delivery Neuraxial method: epidural Epidural/Spinal procedure site: clean & non-tender Neuro status: Neuro function grossly intact. Cardiovascular status: normal Respiratory status: normal Airway patency: baseline Mental status: baseline Post-Op hydration status: normal Vital Signs: Last Vital Signs Temp 36.6 C 04/20/21 08:20 Pulse 81 04/20/21 08:20 Resp 16 04/20/21 08:20 BP 111/75 04/20/21 08:20 Pulse Ox 100 04/20/21 08:20 Pain score (VAS): 02/15 I/O: Intake & Output 04/19/21 04/20/21 04/20/21 23:59 07:59 15:59 Intake Total 1000 Output Total 74 Balance 926 Post-procedural complaints: none Patient feedback: Patient satisfied with anesthetic care.
[2021-04-20 11:46] VITALS: BP 115/78; PULSE 83; RESP 16; TEMP 36.7; O2SAT 100
[2021-04-20 15:45] VITALS: BP 122/76; PULSE 89; RESP 18; TEMP 37.1; O2SAT 100
--- NOTE | 2021-04-20 15:45 | PCCCNOTE ---
Care Coordination met with pt. and FOB this morning to discuss discharge planning. Pt.'s current D/C plan is to return home with FOB and her two year old daughter. Pt. states she has alot of local family support if needed. Pt. has everything needed to safely bring baby home. She confirms she has a safe place for baby to sleep and a car seat. Pt. will bottle feed baby at time of D/C and has no concerns about obtaining formula. She is looking into WIC. Pt. has Dr. Gomez as baby's occupational health nurse supervisor. Pt. tested positive for marijuana at time of admission. Baby was not test but has pending umbilical cord drug screen. CC will follow.
[2021-04-20] MEDS: ACETAMINOPHEN 325 MG TABLET 650 MG PO (15:57)
[2021-04-20] MEDS: TETANUS,DIPHTHERIA,AC PERTUSSIS ADULT (0.5 ML) BOOSTRIX IM (15:58)
--- NOTE | 2021-04-21 12:12 | PM.OBDSVD ---
DS: Admitting Diagnosis Discharge Date 04/20/21 Admitting Diagnosis IOL OB - DS: Summary OB Procedures : None OB Procedures Intrapartum: Spontaneous Vag Delivery OB Procedures: : None Time Spent with Patient Time attestation: Total time spent providing and/or coordinating discharge services: Discharge Plan Discharge Attending physician on discharge: Tiesha Ng Consulting providers: Brionna Hernandez Discharging Clinician: Tiesha Ng Patient Disposition: Home, Self-Care Activity: pelvic rest Diet: regular Discharge Instructions: Education: Mom and Baby Guide Given to: Mother Follow-Up: Call your delivering provider's office for an appointment to be seen in: 6 Weeks Mom and baby should come to the [facility] for the follow-up appointment. Appointment Date/Time: April 22, 2021 at 11:00 am What to expect at your follow-up visit: Physical Assessment Call [phone] if you are unable to keep your appointment time. BREAST CARE: * Wear a snug supportive bra. * For engorgement discomfort: Bottle Feeding: * May apply ice packs EPISIOTOMY/PERINEAL CARE: * Until bleeding stops, use your trinity bottle after urinating * Change your pad frequently throughout the day * You may take sitz baths several times a day (fill your bathtub with warm water and soak for 20 minutes.) Do NOT bathe in the water * No tub baths until seen by your physician - You may shower ACTIVITY: * Rest as much as possible. * Do not exercise or lift anything heavier than your baby (such as laundry or other children.) * Avoid stairs or driving as much as possible. * Do not put anything into the vagina. No douching, tampons, or sexual activity until seen by physician. NOTIFY PHYSICIAN IF YOU HAVE ANY QUESTIONS OR IF ANY OF THE FOLLOWING SYMPTOMS OCCUR: * If your episiotomy or incision becomes red, swollen, or more painful than what you have experienced in the hospital. * If your vaginal bleeding becomes foul smelling. * If your vaginal bleeding becomes more heavy than a period or if your bleeding changes from pink to bright red. However, you may pass an occasional walnut-sized clot once or twice for the first week . * If you experience a sharp, shooting pain in you calves. * If you discover a hard, reddened area on your breast or if you experience flu-like symptoms. DIET: * Eat regular, well-balanced meals. * Drink plenty of fluids daily. If , drink to thirst. Patient Instructions: Antibiotic Form Stand Alone Forms: General Discharge Information Follow-up/Referrals: Marquez Hernandez MD [Physician] - 4 Weeks Discharge Medications: Continued Slow Fe 142 mg (45 mg iron) Tablet Extended Release 142 mg PO DAILY RF: 0 PNV cmb#95-ferrous fumarate-FA [] 28 mg iron- 800 mcg Tablet 1 tablet PO DAILY RF: 0 famotidine [Pepcid] 20 mg Tablet 20 mg PO BID RF: 0 Date of admission: 04/19/21 06:51 Primary Care Provider: PHYSICIAN,[employer]A [employer]UM[employer] OPERATOR Admitting Provider: Marquez Hernandez Attending physician on admission: Tiesha Ng Condition: Stable
[2021-04-22 11:00] VITALS: BP 117/85; PULSE 74; RESP 16; TEMP 37.1; O2SAT 100
== END 2021-04-20 20:20 | disposition home or self-care (01) | DRG 807 ==
LOC: ANHOB2 04-20 19:11 → ANHLDR 04-21 10:34 → ANHOB2 04-21 10:34
PROVIDERS: Advanced Practice Midwife; Admitting Provider Obstetrics & Gynecology; Visit Provider Obstetrics & Gynecology
DX: O66.0 Obstructed labor due to shoulder dystocia (principal); Z37.0 Single live birth; Z3A.39 39 weeks gestation of pregnancy; O36.8330 Maternal care for abnormalities of the fetal heart rate or rhythm, third trimester, not applicable or unspecified; Z23 Encounter for immunization
CPT/HCPCS: 36415; 80307; 85014; 85018; 85025; 86592; 86850; 86900; 86901; 90471; 90653; 90715; A9270; G0008; J2405; J2590; J2795; J7120

== ENCOUNTER 2023-03-14 09:54 | Outpatient (CLI) | payer OTHER, SELFPAY ==
[2023-03-14 20:15] LABS: Iron 96 ug/dL (37-170)
[2023-03-14 20:19] LABS: Alanine Aminotransferase 20 U/L (6-35); Albumin Level 4.4 g/dL (3.5-5.1); Alkaline Phosphatase 61 U/L (38-126); Anion Gap 4 mmol/L (8-16); Aspartate Amino Transferase 56 U/L (14-36); Bilirubin,Total 0.6 mg/dL (0.2-1.3); Blood Urea Nitrogen 13 mg/dL (7-17); Calcium 9.5 mg/dL (8.4-10.2); Carbon Dioxide 31 mmol/L (22-30); Chloride 102 mmol/L (98-107); Cholesterol 187 mg/dL (0-200); Estimated Glomerular Filt Rate > 60; Glucose 89 mg/dL (65-110); HDL Direct 54 mg/dL; Potassium 4.2 mmol/L (3.4-5.0); Sodium 137 mmol/L (137-145); Triglycerides 105 mg/dL (<150)
[2023-03-14 20:24] LABS: Percent Iron Saturation 23 % (20-50)
[2023-03-14 20:25] LABS: Hematocrit 38.7 % (37.0-47.0); Hemoglobin 12.2 g/dL (12.0-15.0); Mean Corpuscular HGB Conc 31.5 g/dl (32-36); Mean Corpuscular Hemoglobin 28.8 pg (26-34); Mean Corpuscular Volume 91.5 fl (80-100); Mean Platelet Volume 9.6 fl (7.4-10.4); Platelet Count Result 339 k/mm3 (150-375); Red Blood Count 4.23 M/mm3 (4.2-5.4); Red Cell Distribution Width 14.2 % (11.5-14.5); White Blood Count 6.6 K/mm3 (4.5-10.0)
[2023-03-14 20:31] LABS: LDL Cholesterol Direct 111 mg/dL
[2023-03-14 20:51] LABS: Ferritin 9.45 ng/mL (6.24-137)
[2023-03-14 21:24] LABS: Folic Acid 6.9 ng/mL (2.76->20)
== END 2023-03-14 09:55 | disposition home or self-care (01) ==
PROVIDERS: PCP Nurse Practitioner Adult Health; Visit Provider Nurse Practitioner Adult Health
DX: Z13.9 Encounter for screening, unspecified (principal); F41.9 Anxiety disorder, unspecified; Z86.2 Personal history of diseases of the blood and blood-forming organs and certain disorders involving the immune mechanism
CPT/HCPCS: 36415; 80053; 80061; 82607; 82728; 82746; 83540; 83550; 84443; 85027